=== PATIENT | female | born 1960 | race Caucasian/White ===

== ENCOUNTER 2023-06-18 10:38 | Inpatient (IN) ==
[2023-06-18] MEDS: Lidocaine 2.5%/Prilocain 2.5% 5 GM TUBE TOPICAL ONE (12:01)
[2023-06-18] MEDS: Lactated Ringers 1000 ml BAG 1,000 ML IV ONE (14:04)
[2023-06-18 14:15] LABS: Hematocrit 26.9 % (35-45); Hemoglobin 9.4 g/dL (11.5-14.3); Mean Corpuscular Hemoglobin 33.1 pg (27-33); Mean Corpuscular Volume 94.4 fL (80-97); Mean Platelet Volume 8.1 fL (7.5-11.2); Platelet Count 216 10^3/uL (150-450); Red Blood Count 2.85 10^6/uL (3.63-4.92); Red Cell Distribution Width 16.3 % (12-17); White Blood Count 2.6 10^3/uL (3.8-11.8)
[2023-06-18 14:35] LABS: ABS Neutrophils 0.9 10^3/uL (1.5-7.6)
[2023-06-18 14:43] LABS: Albumin 3.2 g/dL (3.2-5.2); Albumin/Globulin Ratio 1.9 (1-3); Calcium 8.5 mg/dL (8.6-10.3); Creatinine, Serum 0.53 mg/dL (0.51-0.95); Globulin 1.7 g/dL (2-4); Magnesium 1.8 mg/dL (1.9-2.7); Phosphorus 3.5 mg/dL (2.5-5.0); Potassium 4.2 mmol/L (3.5-5.0); Total Bilirubin 0.4 mg/dL (0.2-1.0); Total Protein 4.9 g/dL (6.4-8.9); eGFR CKD-EPI 105.2 (>60)
[2023-06-18 15:00] LABS: ABS Monocytes 0.7 10^3/uL (0.0-0.9); Eosinophil % 1.6 %; Lymphocyte % 36.1 %; Nucleated Red Blood Cells % 0.2 %/100WBC (0.0-0.8)
[2023-06-18 15:54] LABS: High Sensitivity Troponin 1 Hr 6 pg/mL (<15)
[2023-06-18] MEDS: Magnesium Sulfate 2 gm BAG 2 GM/50 ML BAG IVPB ONE (18:41)
[2023-06-18] MEDS: NS 0.9% 1000 ml BAG 1,000 ML IV SCH (18:41)
[2023-06-18] MEDS: Gadoteridol (CONTRAST) 279.3 MG/ML 10 ML IV ONE (18:55)
[2023-06-18 19:35] LABS: Osmolality Serum 248 mOsm/kg (275-295)
[2023-06-18 19:42] LABS: TSH Ultra Thyroid Stim Horm 0.38 mcIU/mL (0.34-5.60)
[2023-06-18] MEDS: Enoxaparin 40 MG/0.4 ML SYR SUBCUT SCH (19:50)
[2023-06-18] MEDS: Ondansetron 4 mg VIAL 2 MG/ML 2 ml VIAL IV PRN (23:12)
[2023-06-19 00:50] LABS: Calcium 8.2 mg/dL (8.6-10.3); Creatinine, Serum 0.5 mg/dL (0.51-0.95); Potassium 4.1 mmol/L (3.5-5.0); eGFR CKD-EPI 106.6 (>60)
[2023-06-19 04:25] LABS: Urine Osmo 372 mOsm/kg (150-1150)
[2023-06-19 06:41] LABS: Hemoglobin 8.8 g/dL (11.5-14.3); Mean Corpuscular Hemoglobin 33.6 pg (27-33); Mean Corpuscular Hgb Conc 35.2 g/dL (31-36); Mean Corpuscular Volume 95.4 fL (80-97); Mean Platelet Volume 8.2 fL (7.5-11.2); Platelet Count 198 10^3/uL (150-450); Red Blood Count 2.62 10^6/uL (3.63-4.92); Red Cell Distribution Width 16.1 % (12-17); White Blood Count 2.3 10^3/uL (3.8-11.8)
[2023-06-19 07:15] LABS: Calcium 7.8 mg/dL (8.6-10.3); Creatinine, Serum 0.53 mg/dL (0.51-0.95); Magnesium 1.7 mg/dL (1.9-2.7); Potassium 4.2 mmol/L (3.5-5.0); eGFR CKD-EPI 105.2 (>60)
[2023-06-19 07:21] LABS: ABS Eosinophils 0.1 10^3/uL (0.0-0.5); ABS Lymphocytes 0.9 10^3/uL (1.0-4.8); ABS Monocytes 0.7 10^3/uL (0.0-0.9); ABS Neutrophils 0.6 10^3/uL (1.5-7.6); Eosinophil % 2.5 %; Lymphocyte % 40.9 %; Nucleated Red Blood Cells % 0.1 %/100WBC (0.0-0.8)
[2023-06-19 07:35] LABS: Ferritin 149.9 ng/mL (11-307)
[2023-06-19] MEDS: Cosyntropin 0.25 MG VIAL IV ONE (07:43)
[2023-06-19] MEDS ORDERED: Iohexol 350 (CONTRAST) 500 ML MDV IV ONE (15:48)
[2023-06-19 22:54] LABS: Calcium 8.4 mg/dL (8.6-10.3); Creatinine, Serum 0.55 mg/dL (0.51-0.95); Potassium 4.4 mmol/L (3.5-5.0); eGFR CKD-EPI 104.2 (>60)
[2023-06-20 05:53] LABS: ABS Lymphocytes 0.9 10^3/uL (1.0-4.8); ABS Monocytes 0.6 10^3/uL (0.0-0.9); ABS Neutrophils 1.1 10^3/uL (1.5-7.6); Eosinophil % 1.1 %; Hematocrit 25.7 % (35-45); Hemoglobin 8.9 g/dL (11.5-14.3); Lymphocyte % 33.8 %; Mean Corpuscular Hemoglobin 33.1 pg (27-33); Mean Corpuscular Hgb Conc 34.7 g/dL (31-36); Mean Corpuscular Volume 95.2 fL (80-97); Mean Platelet Volume 8.1 fL (7.5-11.2); Nucleated Red Blood Cells % 0.2 %/100WBC (0.0-0.8); Platelet Count 218 10^3/uL (150-450); Red Cell Distribution Width 16.3 % (12-17); White Blood Count 2.5 10^3/uL (3.8-11.8)
[2023-06-20 06:15] LABS: Calcium 8.3 mg/dL (8.6-10.3); Creatinine, Serum 0.5 mg/dL (0.51-0.95); Magnesium 1.6 mg/dL (1.9-2.7); Phosphorus 3.5 mg/dL (2.5-5.0); eGFR CKD-EPI 106.6 (>60)
[2023-06-20] MEDS: Magnesium Sulfate 2 gm BAG 2 GM/50 ML BAG IVPB ONE (09:12)
[2023-06-20] MEDS: Magnesium Sulfate IV 1GM/100ML 1 GM/100 ML BAG IV ONE (10:34)
[2023-06-20 14:08] VITALS: BP 121/72
[2023-06-23 12:16] LABS: Renin <0.6 ng/mL/h
== END 2023-06-20 15:30 | disposition home or self-care (01) | DRG 425 ==
LOC: ED 10:38 → EDHOLD 16:23 → MED 19:46
PROVIDERS: ADMIT Internal Medicine; ATTEND Internal Medicine